=== PATIENT | male | born 1965 | race African-American/Black ===

== ENCOUNTER 2018-12-21 11:59 | Emergency (ER) | payer OTHER ==
[~2018-12-21] VITALS: Ht 177.8 cm; Wt 113.4 kg
[2018-12-21 12:36] LABS: ABSOLUTE NEUTROPHILS 2.4 thou/uL (1.4-8.2); EOSINOPHILS 2.2 % (0.0-3.0); HEMATOCRIT 43.7 % (42.0-52.0); HEMOGLOBIN 14.4 gm/dL (14.0-18.0); LYMPHOCYTES 33.4 % (24.0-44.0); MCH 29.5 pg (26.0-34.0); MCHC 32.8 g/dL (28.0-37.0); MONOCYTES 11.9 % (1.0-8.0); PLATELET COUNT 141 thou/uL (150-400); POLYS 51.5 % (36.0-66.0); RBC 4.86 mil/uL (4.50-6.00); RDW 14.9 % (10.5-14.5); WBC 4.7 thou/uL (4.0-11.0)
[2018-12-21 12:38] LABS: ANION GAP 7 mmol/L (7-16); BUN 14 mg/dL (7-18); CALCIUM 9.3 mg/dL (8.5-10.1); CHLORIDE 105 mmol/L (98-107); CO2 27 mmol/L (21-32); CREATININE 1.7 mg/dL (0.7-1.3); GLUCOSE 107 mg/dL (74-106); POTASSIUM 4.2 mmol/L (3.5-5.1); SODIUM 139 mmol/L (136-145)
[2018-12-21 12:49] LABS: ALBUMIN 3.8 g/dL (3.4-5.0); SGOT 20 U/L (15-37); SGPT 22 U/L (30-65); TOTAL BILIRUBIN 0.3 mg/dL (<0.1-1.0); TOTAL PROTEIN 7.2 g/dL (6.4-8.2); TROPONIN-I <0.06 ng/mL (<0.06)
[2018-12-21] MEDS ORDERED: NORVASC5 MG PO ×2 (15:04→15:07)
[2018-12-21 17:02] VITALS: BP 154/103
--- NOTE | 2018-12-22 08:08 | EKG ---
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1965 Requested By: Santiago Robles Order Number: [id number] MD: Dylan Ascencio Measurements Intervals [place] Rate: 71 P: 26 [place]: 167 QRS: -1 QRSD: 95 T: -6 QT: 408 QTc: 444 Interpretive Statements Sinus rhythm Nonspecific ST and T wave abnormality No previous ECG available for comparison Electronically Signed On 12-22-2018 8:08:05 CDT by Dylan Ascencio [email or web address] ��������������������������������������������� <ELECTRONICALLY SIGNED> ���������������������������������������� By: Dylan Ascencio MD, [facility] ��������������������������������������������� 12/22/18 0808 1205 1205 Dylan Ascecnio MD, FACC /EPI
--- NOTE | 2018-12-22 08:11 | EKG ---
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1965 Requested By: Santiago Robles Order Number: [id number] MD: Dylan Ascencio Measurements Intervals [place] Rate: 69 P: 8 [place]: 190 QRS: -8 QRSD: 95 T: -20 QT: 393 QTc: 421 Interpretive Statements Sinus rhythm LVH with secondary repolarization abnormality No previous ECG available for comparison Electronically Signed On 12-22-2018 8:11:15 CDT by Dylan Ascencio [email or web address] ��������������������������������������������� <ELECTRONICALLY SIGNED> ���������������������������������������� By: Dylan Ascencio MD, [facility] ��������������������������������������������� 12/22/18 0811 1442 1442 Dylan Ascencio MD, FACC /EPI
== END 2018-12-21 17:02 | disposition home or self-care (01) ==
LOC: ER 11:59
PROVIDERS: Physician Assistant
DX: N17.9 Acute kidney failure, unspecified (principal); I10 Essential (primary) hypertension; F17.290 Nicotine dependence, other tobacco product, uncomplicated

== ENCOUNTER 2020-07-29 18:04 | Emergency (ER) | payer OTHER ==
[~2020-07-29] VITALS: Ht 195.6 cm; Wt 124.7 kg
[~2020-07-29 18:04] MED LIST: NORVASC5 MG PO
[2020-07-29] MEDS ORDERED: CRESTOR5 MG PO (18:14)
[2020-07-29 18:38] LABS: HEMATOCRIT 45.2 % (42.0-52.0); HEMOGLOBIN 15.3 gm/dL (14.0-18.0); MCH 30.9 pg (26.0-34.0); MCHC 33.9 g/dL (28.0-37.0); MCV 91.2 fL (80.0-100.0); RBC 4.95 mil/uL (4.50-6.00); RDW 13.8 % (10.5-14.5); WBC 6.3 thou/uL (4.0-11.0)
[2020-07-29 18:53] LABS: ANION GAP 11 mmol/L (7-16); BUN 16 mg/dL (7-18); CALCIUM 9.5 mg/dL (8.5-10.1); CHLORIDE 105 mmol/L (98-107); CO2 26 mmol/L (21-32); CREATININE 1.9 mg/dL (0.7-1.3); GLUCOSE 101 mg/dL (74-106); POTASSIUM 4.1 mmol/L (3.5-5.1); SODIUM 142 mmol/L (136-145)
[2020-07-29 19:01] LABS: TROPONIN-I <0.06 ng/mL (<0.06)
[2020-07-29 19:12] VITALS: BP 135/87
[2020-07-29] MEDS ORDERED: MIRALAX119 GM PO (19:36)
--- NOTE | 2020-07-30 07:44 | EKG ---
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 : 1965 Requested By: Gerry Hernandez Order Number: [id number] MD: Reza Mijares Measurements Intervals [place] Rate: 103 P: 42 [place]: 154 QRS: 7 QRSD: 90 T: 4 QT: 355 QTc: 465 Interpretive Statements Sinus tachycardia Probable left atrial enlargement Baseline wander in lead(s) V2 Compared to ECG 12/21/2018 14:42:23 Sinus rhythm no longer present Left ventricular hypertrophy no longer present Early repolarization no longer present Electronically Signed On 07-30-2020 7:44:39 GREEN INSPECTOR by Reza Mijares [email or web address] <ELECTRONICALLY SIGNED> By: Reza Mijares MD, [facility] 07/30/20 0744 01 01 Reza Mijares MD, [facility] /EPI
== END 2020-07-29 19:47 | disposition home or self-care (01) ==
LOC: ER 18:04
PROVIDERS: Emergency Medicine
DX: K59.00 Constipation, unspecified (principal); R00.2 Palpitations; M79.601 Pain in right arm; M79.602 Pain in left arm; F17.220 Nicotine dependence, chewing tobacco, uncomplicated; Z79.899 Other long term (current) drug therapy